=== PATIENT | male | born 2000 | race Caucasian/White ===

== ENCOUNTER 2019-12-15 07:18 | Outpatient (RCR) | payer OTHER ==
[~2019-12-15] VITALS: Ht 185.5 cm; Wt 79.5 kg
[~2019-12-15 07:18] MED LIST: CETI10CA PO; FLUT9.9S NSEACH; MONT10TA21 PO
== END 2019-12-15 10:36 | disposition home or self-care (01) ==
LOC: PREOP 07:18
PROVIDERS: ATTEND Urology
DX: Z01.812 Encounter for preprocedural laboratory examination (principal); I86.1 Scrotal varices; Z20.828 Contact with and (suspected) exposure to other viral communicable diseases
CPT/HCPCS: 87635

== ENCOUNTER 2019-12-20 06:03 | Day surgery (SDC) | payer OTHER ==
[~2019-12-20] VITALS: Ht 185 cm; Wt 79.5 kg
[2019-12-20] VITALS (10 sets, daily range): BP systolic 97–129; BP diastolic 51–81
[2019-12-20] MEDS ORDERED: LACTATED RINGERS 1,000 ML IV PRN (06:13)
[2019-12-20] MEDS ORDERED: ceFAZolin INJECTION 1,000 MG in WATER (STERILE) FOR INJECTION 10 ML IV ONE (06:15)
[2019-12-20] MEDS ORDERED: fentaNYL INJECTION 100 MCG/2 ML AMP ONE (06:45)
[2019-12-20] MEDS ORDERED: proPOfol 200 MG/20 ML (DIPRIVAN) VIAL IV ONE (06:46)
[2019-12-20] MEDS ORDERED: MIDAZOLAM 2 MG/2 ML (VERSED) VIAL ONE (06:46)
[2019-12-20] MEDS ORDERED: LIDOCAINE PF 2% 5 ML (XYLOCAINE) VIAL ONE (06:46)
[2019-12-20] MEDS ORDERED: DEXAMETHASONE 10 MG/ML (DECADRON) 1 ML VIAL ONE (06:55)
[2019-12-20] MEDS ORDERED: SEVOFLURANE (ULTANE) 15 ML INHAL SOLN ONE ×4 (06:55)
[2019-12-20] MEDS ORDERED: ONDANSETRON 4 MG/2 ML (SDV) Z0FRAN ONE (06:55)
--- NOTE | 2019-12-20 07:01 | Progress Note-Pre Operative ---
Pre-Operative Progress Note H&P Reviewed The H&P was reviewed, patient examined and no changes noted. Date Seen by Provider: Dec 20, 2019 Time Seen by Provider: 07:01 Date H&P Reviewed: Dec 20, 2019 Time H&P Reviewed: 07:01 Pre-Operative Diagnosis: LT VARICOCELE LIDIA GASTELUM MD Dec 20, 2019 07:01
--- NOTE | 2019-12-20 07:02 | Progress Note-Post Operative ---
Post-Operative Progess Note Surgeon (s)/Corsets Salesperson (s) Surgeon LIDIA GASTELUM MD Corsets Salesperson: CHRISTINE LEWIS D.O Pre-Operative Diagnosis LT VARICOCELE Post-Operative Diagnosis SAME AND PUBIC SKIN LESION Procedure & Operative Findings Date of Procedure 12/20/19 Procedure Performed/Findings LT SPERMATIC VEIN LIGATION AND EXCISION OF PUBIC SKIN LESION Anesthesia Type GENERAL Estimated Blood Loss Estimated blood loss (mL): NEGLIGIBLE Specimens/Packing Specimens Removed 2 LT SPERMATIC VEINS AND PUBIC SKIN LESION Packing: NONE LIDIA GASTELUM MD Dec 20, 2019 07:02
--- NOTE | 2019-12-20 07:04 | Discharge Inst-Urology ---
Discharge Inst-Urology Reconcile Patient Problems Problems Reviewed?: Yes Final Diagnosis LT VARICOCELE AND PUBIC SKIN LESION Patient Instructions/Follow Up Plan/Assessment/Instructions Please make appointment to been seen in office in 2 weeks. Rest till then Showers, no bath Keep bowels soft and moving Increase oral fluids for 48 hours and then as needed. Diet as tolerated. If questions or concerns contact your physician Or seek help at emergency department. LIDIA GASTELUM MD Dec 20, 2019 07:04
[2019-12-20] MEDS ORDERED: WATER (STERILE) FOR INJECTION 10 ML ONE (07:07)
[2019-12-20] MEDS ORDERED: ceFAZolin INJECTION 1,000 MG ONE (07:07)
[2019-12-20] MEDS ORDERED: CEPH-507 PO (08:07)
[2019-12-20] MEDS ORDERED: TRM50T PO (08:07)
[2019-12-20] MEDS ORDERED: ONDANSETRON 4 MG/2 ML (SDV) Z0FRAN IVP PRN (08:15)
[2019-12-20] MEDS ORDERED: HYDROmorphone 2 MG/ML VIAL (DILAUDID) IV ONE (08:15)
[2019-12-20] MEDS ORDERED: morphine INJ 10 MG/ML 1ML (SYR OR VIAL) IVP ONE (08:15)
[2019-12-20] MEDS ORDERED: morphine INJ 10 MG/ML 1ML (SYR OR VIAL) ONE (08:19)
--- NOTE | 2019-12-20 10:03 | OPERATIVE REPORT ---
DATE OF SERVICE: 12/20/2019 PREOPERATIVE DIAGNOSES: 1. Left varicocele. 2. Pubic skin lesion. POSTOPERATIVE DIAGNOSES: 1. Left varicocele. 2. Pubic skin lesion. OPERATIONS PERFORMED: Left spermatic vein ligation and excision of pubic skin lesion. SURGEON: Lidia Gastelum MD. NUTRITION SERVICES ASSOCIATE: Star Bonds DO. ANESTHESIA: General. COMPLICATIONS: None. DESCRIPTION OF PROCEDURE: Under satisfactory general anesthesia and the patient in supine position, the abdomen, genitalia and thigh were prepped and draped in the usual sterile fashion. First, I removed the skin lesion in the pubic area and the skin was approximated with #1 interrupted 4-0 Vicryl. Then, a skin incision was made in the left groin along the skin crease, carried through the subcutaneous tissue and Bo's fascia. The external oblique aponeurosis was incised along the direction of its fibers. The ilioinguinal nerve was identified and preserved at all time. The spermatic cord was identified and two large veins were identified and dissection was carried towards the internal ring. A loop was passed around the spermatic cord to dilate the veins. The two veins were excised, good portion of them and the ends were ligated with 2-0 silk ligature. There were no further veins. No veins in the inguinal floor. The spermatic cord was replaced in this position and the testicle felt firm. Closure was performed in layers, the external oblique aponeurosis with a running 2-0 Vicryl, one stitch for the Bo's fascia in the middle and then the skin with subcuticular running 4-0 Vicryl suture. Glue was applied as well as dressing. Estimated blood loss negligible, none of which was replaced. Needle, sponge and instruments correct x2. The patient tolerated the procedure and anesthesia well and was sent to the recovery room in stable condition. Instructions were given to the mother and later on to the patient Job ID: [id number] DocumentID: [id number] Dictated Date: 12/20/2019 08:02:03 Business Applications Developer Date: 12/20/2019 10:03:03 Dictated By: LIDIA GASTELUM MD [facility]
--- NOTE | 2019-12-20 10:35 | Anesthesia-General Post-Op ---
General Patient Condition Mental Status/LOC: Same as Preop Cardiovascular: Satisfactory Nausea/Vomiting: Absent Respiratory: Satisfactory Pain: Controlled Complications: Absent Post Op Complications Complications None Follow Up Care/Instructions Patient Instructions None needed. Anesthesia/Patient Condition Patient Condition Patient was seen this morning after the procedure and he was doing well, no complaints, stable vital signs, no apparent adverse anesthesia problems. ANGELA SIMPSON DO Dec 20, 2019 10:35
== END 2019-12-20 10:15 | disposition home or self-care (01) ==
LOC: SDC 06:03
PROVIDERS: ATTEND Urology
DX: I86.1 Scrotal varices (principal); D22.5 Melanocytic nevi of trunk; Z11.2 Encounter for screening for other bacterial diseases
CPT/HCPCS: 87081